=== PATIENT | female | born 1980 | race Caucasian/White ===

== ENCOUNTER 2018-09-02 20:40 | Emergency (ER) | payer SELFPAY ==
[2018-09-02 20:48] LABS: ADD MAN DIFF? NO
[2018-09-02 20:58] LABS: BASOPHILS % 0.6 % (0.0-2.0); EOSINOPHILS # 0.1 10^3/ul (0.0-0.5); HEMATOCRIT 34.6 % (37.0-47.0); HEMOGLOBIN 11.2 g/dl (12.0-16.0); LYMPHOCYTES # 2.3 10^3/ul (0.8-2.9); MEAN CORPUSCULAR HEMOGLOBIN 26.9 pg (29.0-33.0); MEAN CORPUSCULAR HGB CONC 32.4 g/dl (32.0-37.0); MEAN PLATELET VOLUME 9.8 fl (7.4-10.4); MONOCYTE # 0.4 10^3/ul (0.3-0.9); MONOCYTES % 7.7 % (0.0-11.0); NEUTROPHIL # 2.6 10^3/ul (1.6-7.5); NEUTROPHILS % 47.3 % (39.0-77.0); PLATELET COUNT 293 10^3/UL (140-415); RED BLOOD COUNT 4.17 10^6/ul (4.20-5.40); RED CELL DISTRIBUTION WIDTH 14.2 % (11.5-14.5)
[2018-09-02 20:58] LABS: WHITE BLOOD COUNT 5.5 10^3/ul (4.8-10.8)
[2018-09-02] MEDS: SOD CHLORIDE 0.9% 1,000 ML IV (20:59)
[2018-09-02 21:18] LABS: ANION GAP 12 (5-13); BLOOD UREA NITROGEN 11 mg/dl (7-20); CALCIUM 8.8 mg/dl (8.4-10.2); CARBON DIOXIDE 22 mmol/L (21-31); CHLORIDE 106 mmol/L (97-110); CREATININE 0.64 mg/dl (0.44-1.00); Estimated GFR > 60 mL/min (>60); GLUCOSE 174 mg/dl (70-220); MAGNESIUM 1.8 mg/dl (1.7-2.5); POTASSIUM 3.4 mmol/L (3.5-5.1); SODIUM 140 mmol/L (135-144)
[2018-09-02 21:27] LABS: TROPONIN-I 0.032 ng/ml (0.000-0.120)
[2018-09-02] MEDS: ACETAMINOPHEN 500 MG TAB PO (22:01)
[2018-09-02] MEDS: LORAZEPAM 2 MG INJ IV (22:03)
== END 2018-09-02 23:33 | disposition home or self-care (01) ==
LOC: E/R 20:40
DX: R00.0 Tachycardia, unspecified (principal)
CPT/HCPCS: 36415; 80048; 81025; 83735; 84484; 85025; 93005; 96361; 96374; 99284-25